=== PATIENT | female | born 1965 | race Caucasian/White ===

== ENCOUNTER 2018-02-11 15:06 | Emergency (ER) | payer SELFPAY ==
[~2018-02-11] VITALS: Ht 162.6 cm; Wt 75.0 kg
[2018-02-11 15:09] VITALS: BP 109/70
== END 2018-02-11 15:30 | disposition left against medical advice (07) ==
LOC: ER 15:17
DX: J00 Acute nasopharyngitis [common cold] (principal); Z53.21 Procedure and treatment not carried out due to patient leaving prior to being seen by health care provider